=== PATIENT | male | born 1990 | race Caucasian/White ===

== ENCOUNTER 2021-02-15 19:30 | Emergency (ER) | payer SELFPAY ==
[2021-02-15 20:18] LABS: BASOPHIL 0.3 % (0-2); EOSINOPHIL 0.3 % (0-5); HCT 48.1 % (42.0-52.0); HGB 16.8 g/dl (13.2-18.0); LYMPHOCYTE 15.2 % (15-48); MCHC 34.9 g/dL (32.0-36.0); MCV 83.1 fL (78.0-100.0); MONOCYTE 7.2 % (0-12); NEUTROPHIL 76.8 % (41-80); NRBC 0; PLT 201 K/uL (150-400); RBC 5.79 M/uL (4.70-6.00); RDW 12.1 % (11.5-14.0); WBC 8.8 K/uL (4.0-10.5)
[2021-02-15 20:34] LABS: ALBUMIN 4.8 g/dL (3.4-5.0); BILIRUBIN - TOTAL 0.6 mg/dL (0.2-1.0); BUN/CREAT RATIO (CALC) 17.5 RATIO; CREATININE 0.57 mg/dL (0.67-1.17); GLOBULIN (CALCULATION) 3.8 g/dL; TOTAL PROTEIN 8.6 g/dL (6.4-8.2)
[2021-02-15 21:45] LABS: BILIRUBIN NEGATIVE (NEGATIVE); BLOOD NEGATIVE Ery/uL (NEGATIVE); CLARITY CLEAR (CLEAR); COLOR YELLOW (YELLOW); GLUCOSE (U) 3+ mg/dL (NORMAL); LEUKOCYTES NEGATIVE Leu/uL (NEGATIVE); NITRITE NEGATIVE (NEGATIVE); PROTEIN TRACE (LOW) mg/dL (NEGATIVE); SPECIFIC GRAVITY 1.015 (1.001-1.030); UROBILINOGEN 0.2 mg/dL (0.2-1.0); pH 6.5 (5.0-9.0)
[2021-02-15] MEDS ORDERED: METFORMIN HCL500 MG PO (22:44)
== END 2021-02-15 23:10 | disposition home or self-care (01) ==
LOC: FER 19:30
PROVIDERS: Emergency Medicine Emergency Medical Services
DX: E11.65 Type 2 diabetes mellitus with hyperglycemia (principal); F17.290 Nicotine dependence, other tobacco product, uncomplicated
CPT/HCPCS: 36415; 80053; 81003; 84145; 84484; 85025; 99284; J7030